=== PATIENT | female | born 1985 | race Caucasian/White ===

== ENCOUNTER 2021-04-25 13:30 | Emergency (ER) | payer OTHER ==
[~2021-04-25 13:30] MED LIST: NAPROSYN500 MG PO; ZOFRAN4 MG PO
[2021-04-25] MEDS ORDERED: NAPROXEN500 MG PO (15:14)
[2021-04-25] MEDS ORDERED: NORFLEX 100 MG100 MG PO (15:14)
== END 2021-04-25 15:50 | disposition home or self-care (01) ==
LOC: ER1 13:30
DX: S76.011A Strain of muscle, fascia and tendon of right hip, initial encounter (principal); F17.210 Nicotine dependence, cigarettes, uncomplicated; Z90.710 Acquired absence of both cervix and uterus; Z88.5 Allergy status to narcotic agent; W20.8XXA Other cause of strike by thrown, projected or falling object, initial encounter
CPT/HCPCS: 73502; 96372; 99283; J1885

== ENCOUNTER 2021-04-27 16:21 | Emergency (ER) | payer OTHER ==
[~2021-04-27 16:21] MED LIST changes: +NAPROXEN500 MG PO; +NORFLEX 100 MG100 MG PO
[2021-04-27 19:26] LABS: HEMOGLOBIN 13.2 gm/dl (12.3-15.3); RED BLOOD COUNT 4.21 M/UL (4.00-5.10); WHITE BLOOD COUNT 7.5 K/UL (4.5-11.0)
[2021-04-27 19:48] LABS: BUN/CREATININE RATIO 10 (0-10)
[2021-04-27] MEDS ORDERED: BENTYL 20MG TAB20 MG PO (22:52)
== END 2021-04-27 23:00 | disposition home or self-care (01) ==
LOC: ER1 16:21
PROVIDERS: Emergency Medicine
DX: R10.31 Right lower quadrant pain (principal); Z88.8 Allergy status to other drugs, medicaments and biological substances; F17.200 Nicotine dependence, unspecified, uncomplicated
CPT/HCPCS: 80053; 81001; 84703; 85025; 87086; 96374; 96375; 96376; 99284; J2270; J2405; Q9967

== ENCOUNTER → 2021-05-09 | Outpatient (CLI) | payer OTHER ==
[~2021-05-09] MED LIST changes: +BENTYL 20MG TAB20 MG PO
== END ==
LOC: SLEEP 12:05
DX: R40.0 Somnolence (principal)
CPT/HCPCS: 95810

== ENCOUNTER 2021-05-25 08:23 | Emergency (ER) | payer OTHER ==
[2021-05-25 10:00] LABS: HEMOGLOBIN 14.4 gm/dl (12.3-15.3); RED BLOOD COUNT 4.86 M/UL (4.00-5.10); WHITE BLOOD COUNT 12.1 K/UL (4.5-11.0)
[2021-05-25 10:19] LABS: BUN/CREATININE RATIO 9 (0-10)
== END 2021-05-25 10:55 | disposition home or self-care (01) ==
LOC: ER1 08:23
PROVIDERS: Emergency Medicine
DX: F41.9 Anxiety disorder, unspecified (principal)
CPT/HCPCS: 80053; 85025; 93005; 96374; 99283; J2060

== ENCOUNTER → 2021-05-27 | Outpatient (CLI) | payer OTHER | LOC: EMI 13:24 | DX: G43.109 Migraine with aura, not intractable, without status migrainosus (principal) | CPT/HCPCS: 70551 ==

== ENCOUNTER → 2021-06-23 | Outpatient (CLI) | payer OTHER ==
[~2021-06-23] MED LIST changes: +AJOVY AUTO225 MG/1.5 SQ; +BUSPAR 10MG10 MG PO; +CLARITIN 10MG T10 MG PO; +DOCUSATE SODIU250 MG PO; +HYDROCODONE-AC1 EACH PO; +LAMOTRIGINE25 MG PO; +NURTEC ODT75 MG PO; +PROPRANOLOL HCL20 MG PO
[2021-06-23 09:34] LABS: HEMOGLOBIN 15.3 gm/dl (12.3-15.3); RED BLOOD COUNT 4.89 M/UL (4.00-5.10); WHITE BLOOD COUNT 11.2 K/UL (4.5-11.0)
== END ==
LOC: OPSV2 08:55
PROVIDERS: Obstetrics & Gynecology
DX: Z01.812 Encounter for preprocedural laboratory examination (principal); R10.2 Pelvic and perineal pain; Z88.6 Allergy status to analgesic agent; Z88.5 Allergy status to narcotic agent; Z88.8 Allergy status to other drugs, medicaments and biological substances
CPT/HCPCS: 36415; 81001; 85025

== ENCOUNTER → 2021-07-04 | Day surgery (SDC) | payer OTHER | END | disposition home or self-care (01) | LOC: OR 05:32 | DX: N80.0 Endometriosis of uterus (principal); G43.909 Migraine, unspecified, not intractable, without status migrainosus; F32.A Depression, unspecified; F41.9 Anxiety disorder, unspecified; K21.9 Gastro-esophageal reflux disease without esophagitis; Z87.891 Personal history of nicotine dependence; Z86.010 Personal history of colon polyps; Z88.6 Allergy status to analgesic agent; Z88.4 Allergy status to anesthetic agent; Z88.8 Allergy status to other drugs, medicaments and biological substances; Z79.899 Other long term (current) drug therapy | CPT/HCPCS: C1769; J0690; J1100; J2001; J2250; J2405; J2550; J2704; J2710; J3010; J7050; J7120 ==

== ENCOUNTER 2021-09-03 22:55 | Emergency (ER) | payer OTHER ==
[2021-09-04 03:30] LABS: HEMOGLOBIN 13.8 gm/dl (12.3-15.3); RED BLOOD COUNT 4.45 M/UL (4.00-5.10); WHITE BLOOD COUNT 9.3 K/UL (4.5-11.0)
[2021-09-04 03:56] LABS: BUN/CREATININE RATIO 13 (0-10)
[2021-09-04] MEDS ORDERED: BENTYL 20MG TAB20 MG PO (05:40)
[2021-09-04] MEDS ORDERED: ZOFRAN ODT 4 MG4 MG PO (05:40)
[2021-10-10] MEDS ORDERED: ESTRACE 1 MG TAB1 MG PO (12:42)
[2021-10-10] MEDS ORDERED: CITALOPRAM HBR40 MG PO (12:43)
[2021-10-10] MEDS ORDERED: EMGALITY120 MG/1 M SQ (12:44)
[2021-10-10] MEDS ORDERED: BUSPIRONE HCL30 MG PO (12:44)
[2021-10-10] MEDS ORDERED: CLONIDINE HCL0.1 MG PO (12:45)
[2021-10-10] MEDS ORDERED: TRAZODONE HCL150 MG PO (12:46)
[2021-10-10] MEDS ORDERED: SUBVENITE150 MG PO (12:46)
[2021-10-10] MEDS ORDERED: REXULTI2 MG PO (12:47)
== END 2021-09-04 06:02 | disposition home or self-care (01) ==
LOC: ER1 22:55
PROVIDERS: Physician Assistant
DX: R10.813 Right lower quadrant abdominal tenderness (principal); F17.210 Nicotine dependence, cigarettes, uncomplicated; Z88.7 Allergy status to serum and vaccine; Z88.5 Allergy status to narcotic agent; Z88.6 Allergy status to analgesic agent; Z88.8 Allergy status to other drugs, medicaments and biological substances
CPT/HCPCS: 80053; 81001; 83690; 85025; 87086; 99284; Q9967

== ENCOUNTER 2021-09-05 15:08 | Emergency (ER) | payer OTHER ==
[~2021-09-05 15:08] MED LIST changes: +ZOFRAN ODT 4 MG4 MG PO
[2021-10-10] MEDS ORDERED: ESTRACE 1 MG TAB1 MG PO (12:42)
[2021-10-10] MEDS ORDERED: CITALOPRAM HBR40 MG PO (12:43)
[2021-10-10] MEDS ORDERED: BUSPIRONE HCL30 MG PO (12:44)
[2021-10-10] MEDS ORDERED: EMGALITY120 MG/1 M SQ (12:44)
[2021-10-10] MEDS ORDERED: CLONIDINE HCL0.1 MG PO (12:45)
[2021-10-10] MEDS ORDERED: SUBVENITE150 MG PO (12:46)
[2021-10-10] MEDS ORDERED: TRAZODONE HCL150 MG PO (12:46)
[2021-10-10] MEDS ORDERED: REXULTI2 MG PO (12:47)
== END 2021-09-05 16:02 | disposition left against medical advice (07) ==
LOC: ER1 15:08
DX: R10.9 Unspecified abdominal pain (principal)
CPT/HCPCS: 99281

== ENCOUNTER 2021-09-22 13:02 | Emergency (ER) | payer OTHER ==
[2021-09-22 13:32] LABS: RED BLOOD COUNT 4.92 M/UL (4.00-5.10); WHITE BLOOD COUNT 9.3 K/UL (4.5-11.0)
[2021-09-22 14:01] LABS: BUN/CREATININE RATIO 13 (0-10)
[2021-09-22] MEDS ORDERED: PHENERGAN 12.12.5 M1 PO (17:47)
[2021-09-22] MEDS ORDERED: PHENERGAN 12.12.5 MG PR (17:47)
[2021-09-23 12:15] LABS: HBSAG SCREEN Negative (Negative); HEP A AB, IGM Negative (Negative); HEP B CORE AB, IGM Negative (Negative); HEP C VIRUS AB <0.1 (0.0-0.9)
== END 2021-09-22 18:09 | disposition home or self-care (01) ==
LOC: ER1 13:02
PROVIDERS: Family Medicine; Physician Assistant
DX: U07.1 COVID-19 (principal); K59.00 Constipation, unspecified; F17.200 Nicotine dependence, unspecified, uncomplicated
CPT/HCPCS: 0240U; 71045; 80053; 80074; 81001; 83690; 85025; 85610; 96374; 99284; J2405; Q9967

== ENCOUNTER → 2021-10-11 | Day surgery (SDC) | payer OTHER ==
[~2021-10-11] MED LIST changes: +BUSPIRONE HCL30 MG PO; +CITALOPRAM HBR40 MG PO; +CLONIDINE HCL0.1 MG PO; +EMGALITY120 MG/1 M SQ; +ESTRACE 1 MG TAB1 MG PO; +PHENERGAN 12.12.5 M1 PO; +PHENERGAN 12.12.5 MG PR; +REXULTI2 MG PO; +SUBVENITE150 MG PO; +TRAZODONE HCL150 MG PO
== END | disposition home or self-care (01) ==
LOC: OR 06:31
DX: Z12.11 Encounter for screening for malignant neoplasm of colon (principal); K64.1 Second degree hemorrhoids; Z86.010 Personal history of colon polyps; Z80.0 Family history of malignant neoplasm of digestive organs; R10.9 Unspecified abdominal pain; E66.3 Overweight; I10 Essential (primary) hypertension; K44.9 Diaphragmatic hernia without obstruction or gangrene; K58.9 Irritable bowel syndrome, unspecified; R56.9 Unspecified convulsions; G43.909 Migraine, unspecified, not intractable, without status migrainosus; F41.9 Anxiety disorder, unspecified; F32.A Depression, unspecified; F17.200 Nicotine dependence, unspecified, uncomplicated; Z68.25 Body mass index [BMI] 25.0-25.9, adult; Z79.899 Other long term (current) drug therapy; Z88.8 Allergy status to other drugs, medicaments and biological substances; Z88.6 Allergy status to analgesic agent; Z90.710 Acquired absence of both cervix and uterus; Z80.1 Family history of malignant neoplasm of trachea, bronchus and lung
CPT/HCPCS: J2001; J2704; J7040

== ENCOUNTER 2021-11-18 12:23 | Emergency (ER) | payer OTHER ==
[2021-11-18 13:43] LABS: HEMOGLOBIN 13.7 gm/dl (12.3-15.3); RED BLOOD COUNT 4.58 M/UL (4.00-5.10); WHITE BLOOD COUNT 9.3 K/UL (4.5-11.0)
[2021-11-18 14:09] LABS: BUN/CREATININE RATIO 12 (0-10)
== END 2021-11-18 16:18 | disposition home or self-care (01) ==
LOC: ER1 12:23
PROVIDERS: Nurse Practitioner
DX: R51.9 Headache, unspecified (principal); F41.9 Anxiety disorder, unspecified; F17.210 Nicotine dependence, cigarettes, uncomplicated; Z20.822 Contact with and (suspected) exposure to COVID-19; Z90.49 Acquired absence of other specified parts of digestive tract
CPT/HCPCS: 0240U; 80053; 85025; 96374; 96375; 99284; J1100; J1200; J1885; J2270; J7030

== ENCOUNTER → 2021-11-23 | Day surgery (SDC) | payer OTHER ==
[~2021-11-23] MED LIST changes: +ESTRADIOL2 MG PO; +LATUDA20 MG PO; +VIIBRYD40 MG PO
== END | disposition home or self-care (01) ==
LOC: OR 07:13
DX: K29.71 Gastritis, unspecified, with bleeding (principal); K44.9 Diaphragmatic hernia without obstruction or gangrene; K31.9 Disease of stomach and duodenum, unspecified; K21.9 Gastro-esophageal reflux disease without esophagitis; G40.909 Epilepsy, unspecified, not intractable, without status epilepticus; G43.909 Migraine, unspecified, not intractable, without status migrainosus; F41.9 Anxiety disorder, unspecified; F17.200 Nicotine dependence, unspecified, uncomplicated; E66.3 Overweight; Z86.010 Personal history of colon polyps; Z80.0 Family history of malignant neoplasm of digestive organs; Z68.27 Body mass index [BMI] 27.0-27.9, adult; Z88.5 Allergy status to narcotic agent; Z88.8 Allergy status to other drugs, medicaments and biological substances; Z79.899 Other long term (current) drug therapy
CPT/HCPCS: J2250; J2704; J7040

== ENCOUNTER 2021-11-30 18:31 | Emergency (ER) | payer OTHER | END 2021-11-30 22:45 | disposition home or self-care (01) | LOC: ER1 18:31 | DX: G43.909 Migraine, unspecified, not intractable, without status migrainosus (principal) | CPT/HCPCS: 96374; 96375; 96376; 99283; J0780; J1200; J1885; J2550; J2765 ==

== ENCOUNTER 2021-12-04 16:28 | Emergency (ER) | payer OTHER | END 2021-12-04 19:31 | disposition home or self-care (01) | LOC: ER1 16:28 | DX: G43.909 Migraine, unspecified, not intractable, without status migrainosus (principal); Z88.8 Allergy status to other drugs, medicaments and biological substances; F17.210 Nicotine dependence, cigarettes, uncomplicated | CPT/HCPCS: 96374; 96375; 99283; J1200; J1885; J2765 ==

== ENCOUNTER 2022-01-18 18:52 | Emergency (ER) | payer OTHER ==
[2022-01-18 20:14] LABS: HEMOGLOBIN 15.8 gm/dl (12.3-15.3); RED BLOOD COUNT 5.21 M/UL (4.00-5.10); WHITE BLOOD COUNT 9.6 K/UL (4.5-11.0)
[2022-01-18 20:34] LABS: BUN/CREATININE RATIO 13 (0-10)
[2022-01-18] MEDS ORDERED: TORADOL 10 MG T10 MG PO (23:12)
[2022-01-18] MEDS ORDERED: PROTONIX40 MG PO (23:12)
== END 2022-01-18 23:24 | disposition home or self-care (01) ==
LOC: ER1 18:52
PROVIDERS: Emergency Medicine
DX: R07.89 Other chest pain (principal); K21.9 Gastro-esophageal reflux disease without esophagitis
CPT/HCPCS: 71045; 80053; 82550; 82553; 84484; 85025; 85379; 93005; 96372; 99285; J1885

== ENCOUNTER 2022-02-05 17:52 | Emergency (ER) | payer OTHER ==
[~2022-02-05 17:52] MED LIST changes: +PROTONIX40 MG PO; +TORADOL 10 MG T10 MG PO
[2022-02-05 20:27] LABS: HEMOGLOBIN 15.8 gm/dl (12.3-15.3); RED BLOOD COUNT 5.06 M/UL (4.00-5.10); WHITE BLOOD COUNT 9.4 K/UL (4.5-11.0)
[2022-02-05 20:49] LABS: BUN/CREATININE RATIO 8 (0-10)
== END 2022-02-06 00:24 | disposition home or self-care (01) ==
LOC: ER1 17:52
PROVIDERS: Family Medicine
DX: F41.9 Anxiety disorder, unspecified (principal); R07.9 Chest pain, unspecified; F17.200 Nicotine dependence, unspecified, uncomplicated
CPT/HCPCS: 71045; 80053; 82550; 82553; 84484; 85025; 85379; 93005; 99285